=== PATIENT | female | born 1995 | race Two or more races ===

== ENCOUNTER 2016-10-01 02:17 | Emergency (ER) | payer OTHER ==
[~2016-10-01] VITALS: Ht 160 cm; Wt 60.0 kg
[2016-10-01 02:18] VITALS: BP 133/82
[2016-10-01] MEDS ORDERED: HYDROcodone/APAP 5/325 TABLET ONE (04:19)
[2016-10-01] MEDS ORDERED: HYDROcodone/APAP 5/325 TABLET PO ONE (04:30)
== END 2016-10-01 04:55 ==
LOC: ED 04:49
DX: M79.671 Pain in right foot (principal); V09.20XA Pedestrian injured in traffic accident involving unspecified motor vehicles, initial encounter; Y93.89 Activity, other specified; Y99.8 Other external cause status; Y92.488 Other paved roadways as the place of occurrence of the external cause
CPT/HCPCS: 99284